=== PATIENT | male | born 1980 ===

== ENCOUNTER 2025-03-18 11:12 | Emergency (ER) | payer OTHER ==
[2025-03-18] MEDS ORDERED: diphenhydrAMINE hydrochloride 50 MG/ML VIAL IV ONE (11:55)
[2025-03-18] MEDS ORDERED: SODIUM CHLORIDE 0.9% 1,000 ML IV ONE (11:55)
[2025-03-18] MEDS ORDERED: INFUSION IV ONE (11:55)
[2025-03-18] MEDS ORDERED: FAMOTIDINE IV ONE (11:55)
[2025-03-18] MEDS ORDERED: ZESTRIL10 MG PO (13:56)
[2025-03-18] MEDS ORDERED: PREDNISONE20 M1 PO (13:56)
== END 2025-03-18 14:30 | disposition home or self-care (01) ==
LOC: ED 11:12
DX: T78.40XA Allergy, unspecified, initial encounter (principal); I10 Essential (primary) hypertension; X58.XXXA Exposure to other specified factors, initial encounter